=== PATIENT | female | born 1990 | race Caucasian/White ===

== ENCOUNTER 2017-08-13 19:34 | Emergency (ER) | payer OTHER ==
[2017-08-13 19:34] VITALS: BMI 33.2
[2017-08-13 19:45] VITALS: RESP 16
[2017-08-13] MEDS ORDERED: Sodium Chloride 0.9% 1,000 ML IV STA (20:08)
--- NOTE | 2017-08-13 20:10 | ED PDOC ---
HPI: Abdomen Time Seen by Provider: 08/13/17 19:53 Chief Complaint (Nursing): Abdominal Pain Chief Complaint (Provider): Abd pain History Per: Patient Onset/Duration Of Symptoms: Days (3) Additional Complaint(s): Abd pain diffuse likely bubbling. Also with nausea, vomit, diarrhea non bloody for 3 days. No new food or drinks. No travel. Denies cough, congestion, dysuria, weakness, dizziness, chest pain, fever. Past Medical History Reviewed: Historical Data, Nursing Documentation, Vital Signs Vital Signs: Last Vital Signs Temp 98.3 F 08/13/17 19:43 Pulse 94 H 08/13/17 19:43 Resp 16 08/13/17 19:43 BP 119/68 08/13/17 19:43 Pulse Ox 99 08/13/17 22:51 - Medical History PMH: Gall Bladder Disease - Surgical History Surgical History: Cholecystectomy, - Family History Family History: States: Unknown Family Hx - Living Arrangements Living Arrangements: With Family - Social History Alcohol: None Drugs: Denies - Immunization History Hx Tetanus Toxoid Vaccination: No Hx Influenza Vaccination: No Hx Pneumococcal Vaccination: No - Home Medications Home Medications: Ambulatory Orders Medication Instructions Recorded No Known Home Med 08/13/17 - Allergies Allergies/Adverse Reactions: Allergies Allergy/AdvReac Type Severity Reaction Status Date / Time No Known Allergies Allergy Verified 05/25/16 07:20 Review of Systems ROS Statement: Except As Marked, All Systems Reviewed And Found Negative Gastrointestinal: Positive for: Nausea, Vomiting, Abdominal Pain, Diarrhea Physical Exam - Reviewed Nursing Documentation Reviewed: Yes Vital Signs Reviewed: Yes - Physical Exam Appears: Positive for: Non-toxic, No Acute Distress Head Exam: Positive for: ATRAUMATIC, NORMAL INSPECTION, NORMOCEPHALIC Skin: Positive for: Normal Color, Warm, DRY Cardiovascular/Chest: Positive for: Regular Rate, Rhythm Respiratory: Positive for: CNT, Normal Breath Sounds Gastrointestinal/Abdominal: Positive for: Bowel Sounds, Soft, Tenderness (mild diffuse). Negative for: Distended, Guarding Back: Positive for: Normal Inspection. Negative for: L CVA Tenderness, R CVA Tenderness Extremity: Positive for: Normal ROM. Negative for: Tenderness, Pedal Edema Neurologic/Psych: Positive for: Alert, Oriented - Laboratory Results Result Diagrams: 08/13/17 20:18 08/13/17 20:18 Interpretation Of Abn Labs: 17.2 wbc - ECG O2 Sat by Pulse Oximetry: 99 Pulse Ox Interpretation: Normal - Progress ED Course And Treament: 1000: Stable. AAOx3. Still in pain and tender on exam. Will Ct considering wbc elevation. 1116: Stable. AAOx3. S/O to Dr. Ortega. Pending CT. Disposition - Clinical Impression Clinical Impression: Abdominal pain - Patient ED Disposition Is Patient to be Admitted: Transfer of Care - Disposition Disposition: Transfer of Care Disposition Time: 23:17 Condition: STABLE
[2017-08-13 20:23] LABS: BASO # 0.1 K/uL (0.0-0.2); BASO % 0.5 % (0.0-2.0); EOS # 0.4 K/uL (0.0-0.7); EOS % 2.6 % (0.0-4.0); HEMATOCRIT 39.9 % (34.0-47.0); LYMPH # 3.2 K/uL (1.0-4.3); LYMPH % 18.7 % (20.0-40.0); MEAN CELL VOLUME 79.4 fl (81.0-99.0); MEAN CORPUSCULAR HEMOGLOBIN 26.5 pg (27.0-31.0); MEAN CORPUSCULAR HGB CONC 33.4 g/dL (33.0-37.0); MEAN PLATELET VOLUME 9.1 fl (7.2-11.7); MONO # 1.3 K/uL (0.0-0.8); MONO % 7.3 % (0.0-10.0); NEUT # 12.2 K/uL (1.8-7.0); NEUT % 70.9 % (50.0-75.0); NRBC % 0.8 % (0.0-0.0); RED CELL DISTRIBUTION WIDTH 16.2 % (11.5-14.5); WHITE BLOOD COUNT 17.2 K/uL (4.8-10.8)
[2017-08-13 20:33] LABS: ALB/GLOB RATIO 1.4 (1.0-2.1); ALKALINE PHOSPHATASE 82 U/L (38-126); ALT/SGPT 43 U/L (9-52); AST/SGOT 23 U/L (14-36); BILIRUBIN,TOTAL 0.4 mg/dl (0.2-1.3); BLOOD UREA NITROGEN 11 mg/dl (7-17); CALCIUM 9.1 mg/dL (8.4-10.2); CARBON DIOXIDE 27 mmol/L (22-30); CHLORIDE 107 mmol/L (98-107); GFR AFRICAN-AMERICAN > 60; GLUCOSE,RANDOM 89 mg/dL (65-105); LIPASE 101 U/L (23-300); POTASSIUM 3.8 MMOL/L (3.6-5.0); SODIUM 144 mmol/l (132-148); TOTAL PROTEIN 7.1 G/DL (6.3-8.2)
[2017-08-13] MEDS ORDERED: Iohexol 240 (50 ml) PO ONE (22:03)
[2017-08-13] MEDS ORDERED: Iohexol 240 (50 ml) ONE (22:12)
[2017-08-13] MEDS ORDERED: Sodium Chloride 0.9% 50 ML IV ONE (23:19)
[2017-08-13] MEDS ORDERED: Iohexol 300 100 ML IJ ONE (23:19)
--- NOTE | 2017-08-14 01:08 | CT ---
EXAM: CT Abdomen and Pelvis With Intravenous Contrast CLINICAL HISTORY: 27 years old, female; Pain and signs and symptoms; Nausea and vomiting; Abdominal pain; Generalized; Prior surgery; Surgery date: 6+ months; Surgery type: Gb removed. 4 c-sections; Additional info: Abd pain TECHNIQUE: Axial computed tomography images of the abdomen and pelvis with intravenous contrast. All CT scans at this facility use one or more dose reduction techniques, viz.: automated exposure control; ma/kV adjustment per patient size (including targeted exams where dose is matched to indication; i.e. head); or iterative reconstruction technique. 520 images are submitted. Oral contrast was administered. Coronal and sagittal reformatted images were created and reviewed. CONTRAST: 90 mL of [id number] administered intravenously. COMPARISON: No relevant prior studies available. FINDINGS: Lower thorax: No acute findings. ABDOMEN: Liver: Unremarkable. No mass. Gallbladder and bile ducts: Cholecystectomy. Pancreas: Unremarkable. No mass. No ductal dilation. Spleen: Unremarkable. No splenomegaly. Adrenals: Unremarkable. No mass. Kidneys and ureters: Unremarkable. No solid mass. No hydronephrosis. Stomach and bowel: Unremarkable. No obstruction. No mucosal thickening. Appendix: Normal appendix. PELVIS: Bladder: Partially distended bladder. Reproductive: High riding ovaries with follicles. Anteriorly displaced heterogeneous uterus. ABDOMEN and PELVIS: Intraperitoneal space: Unremarkable. No free air. No significant fluid collection. Bones/joints: No acute fracture. No dislocation. Soft tissues: Unremarkable. Vasculature: Unremarkable. No abdominal aortic aneurysm. Lymph nodes: Bilateral groin lymph nodes. IMPRESSION: No acute findings.
--- NOTE | 2017-08-14 01:28 | ED PDOC ---
"- Laboratory Results Result Diagrams: 08/13/17 20:18 08/13/17 20:18 - ECG O2 Sat by Pulse Oximetry: 99 (RA) Pulse Ox Interpretation: Normal Medical Decision Making Medical Decision Makin:00. Patient signed out by Dr. Gatica. Pending CT report. EXAM: CT Abdomen and Pelvis With Intravenous Contrast CLINICAL HISTORY: 27 years old, female; Pain and signs and symptoms; Nausea and vomiting; Abdominal pain; Generalized; Prior surgery; Surgery date: 6+ months; Surgery type: Gb removed. 4 c-sections; Additional info: Abd pain TECHNIQUE: Axial computed tomography images of the abdomen and pelvis with intravenous contrast. All CT scans at this facility use one or more dose reduction techniques, viz.: automated exposure control; ma/kV adjustment per patient size (including targeted exams where dose is matched to indication; i.e. head); or iterative reconstruction technique. 520 images are submitted. Oral contrast was administered. Coronal and sagittal reformatted images were created and reviewed. CONTRAST: 90 mL of [id number] administered intravenously. COMPARISON: No relevant prior studies available. FINDINGS: Lower thorax: No acute findings. ABDOMEN: Liver: Unremarkable. No mass. Gallbladder and bile ducts: Cholecystectomy. Pancreas: Unremarkable. No mass. No ductal dilation. Spleen: Unremarkable. No splenomegaly. Adrenals: Unremarkable. No mass. Kidneys and ureters: Unremarkable. No solid mass. No hydronephrosis. Stomach and bowel: Unremarkable. No obstruction. No mucosal thickening. Appendix: Normal appendix. PELVIS: Bladder: Partially distended bladder. Reproductive: High riding ovaries with follicles. Anteriorly displaced heterogeneous uterus. ROMANA JARRETT | Final Radiology Report CONFIDENTIALITY STATEMENT This report is intended only for use by the referring physician, and only in accordance with law. If you received this in error, call [phone]. Page 2 of 2 ABDOMEN and PELVIS: Intraperitoneal space: Unremarkable. No free air. No significant fluid collection. Bones/joints: No acute fracture. No dislocation. Soft tissues: Unremarkable. Vasculature: Unremarkable. No abdominal aortic aneurysm. Lymph nodes: Bilateral groin lymph nodes. IMPRESSION: No acute findings. 01:26. Patient is in no acute distress at this time. Patient was instructed to follow up with PMD for further evaluation and to return if symptoms worsens. Disposition Counseled Patient/Family Regarding: Studies Performed, Diagnosis, Need For Followup - Clinical Impression Clinical Impression: Abdominal pain - POA Present On Arrival: None - Disposition Referrals: [facility] [Outside] [facility] [Outside] Charly Blanton MD [Staff Provider] - Disposition: Routine/Home Disposition Time: 01:00 Condition: IMPROVED Additional Instructions: follow up with your primary doctor in 1-2 days/GI doctor as well return to the ED with any worsening or concerning symptoms Instructions: Abdominal Pain (ED) Forms: [employer] (Indonesian)"
[2017-08-14 01:32] VITALS: BP 123/86; PULSE 82; TEMP 97.9
[2017-08-14 06:06] VITALS: O2SAT 99
== END 2017-08-14 01:34 | disposition home or self-care (01) ==
LOC: H.ER 19:34
DX: R10.9 Unspecified abdominal pain (principal); K82.9 Disease of gallbladder, unspecified
CPT/HCPCS: 74177; 80053; 81025; 83690; 85025; 96361; 96374; 96375; 99283; J1885; J2405; J7040; Q9966; Q9967

== ENCOUNTER 2018-02-21 08:11 | Emergency (ER) | payer OTHER ==
[2018-02-21 08:18] VITALS: BMI 32.4
[2018-02-21 08:20] VITALS: BP 110/76; PULSE 86; RESP 18; TEMP 98.7; O2SAT 99
--- NOTE | 2018-02-21 08:37 | ED PDOC ---
HPI: Eye Injury/Pain Time Seen by Provider: 02/21/18 08:16 Chief Complaint (Provider): Facial pain History Per: Patient History/Exam Limitations: no limitations Onset/Duration Of Symptoms: Days (x2 weeks) Current Symptoms Are (Timing): Still Present Quality: "Pain" Additional Complaint(s): Ferdinand Newberry is a 28 year old female, with no significant past medical history, who presents to the emergency department for left sided post auricular pain onset for x2 weeks. Patient reports pain radiates to left side of face. Patient noticed difficulty opening eye yesterday and pain worsened by opening and closing mouth. She denies any trauma or dizziness. No further medical complaints. PMD: None provided. Past Medical History Reviewed: Historical Data, Nursing Documentation, Vital Signs Vital Signs: Last Vital Signs Temp 98.7 F 02/21/18 08:19 Pulse 86 02/21/18 08:19 Resp 18 02/21/18 08:19 BP 110/76 02/21/18 08:19 Pulse Ox 99 02/21/18 08:19 - Medical History PMH: No Chronic Diseases, Gall Bladder Disease - Surgical History Surgical History: Cholecystectomy (2010), - Family History Family History: States: Unknown Family Hx - Immunization History Hx Tetanus Toxoid Vaccination: No Hx Influenza Vaccination: No Hx Pneumococcal Vaccination: No - Home Medications Home Medications: Ambulatory Orders Medication Instructions Recorded Bismuth Subsalicylate [Pepto 2 tab PO Q1 PRN #16 ctb 11/06/17 Bismol] Dicyclomine [Bentyl] 20 mg PO QID PRN #20 tab 11/06/17 Famotidine [Pepcid] 20 mg PO BID #30 tab 11/06/17 Naproxen [Naprosyn] 500 mg PO Q12H #20 tab 02/21/18 - Allergies Allergies/Adverse Reactions: Allergies Allergy/AdvReac Type Severity Reaction Status Date / Time No Known Allergies Allergy Verified 11/08/17 01:30 Review of Systems ROS Statement: Except As Marked, All Systems Reviewed And Found Negative Eyes: Positive for: Other (difficulty opening eyes) ENT: Positive for: Other (left post auricular pain. Left sided facial pain) Physical Exam - Reviewed Nursing Documentation Reviewed: Yes Vital Signs Reviewed: Yes - Physical Exam Appears: Positive for: Non-toxic, No Acute Distress Head Exam: Positive for: ATRAUMATIC (No tenderness over mastoids. Tenderness to left TMJ area), NORMOCEPHALIC Skin: Positive for: Normal Color, Warm, Dry. Negative for: Rash (facial) Eye Exam: Positive for: Normal appearance, EOMI, PERRL Neck: Positive for: Painless ROM, Supple (non-tender) Respiratory: Negative for: Respiratory Distress Extremity: Positive for: Normal ROM (on all extremities). Negative for: Deformity, Swelling Neurologic/Psych: Positive for: Alert, Oriented (x3). Negative for: Motor/ Sensory Deficits (no focal deficits) - ECG O2 Sat by Pulse Oximetry: 99 (RA) Pulse Ox Interpretation: Normal Medical Decision Making Medical Decision Making: Initial Plan: --Head w/o contrast [CT] --Reevaluation Scribe Attestation: Documented by Chaparro Rose, acting as a scribe for Woody Nguyen MD Provider Scribe Attestation: All medical record entries made by the Scribe were at my direction and personally dictated by me. I have reviewed the chart and agree that the record accurately reflects my personal performance of the history, physical exam, medical decision making, and the department course for this patient. I have also personally directed, reviewed, and agree with the discharge instructions and disposition. Disposition - Clinical Impression Clinical Impression: Headache, Trigeminal neuralgia - Patient ED Disposition Is Patient to be Admitted: No Counseled Patient/Family Regarding: Studies Performed, Diagnosis, Need For Followup, Rx Given - Disposition Referrals: Maria Elena Flores MD [Medical Doctor] - Disposition: Routine/Home Disposition Time: 11:04 Condition: FAIR Prescriptions: Naproxen [Naprosyn] 500 mg PO Q12H #20 tab Instructions: Trigeminal Neuralgia, Headache, Adult
--- NOTE | 2018-02-21 10:12 | CT ---
PROCEDURE: CT HEAD WITHOUT CONTRAST. HISTORY: Left sided headache COMPARISON: None available. TECHNIQUE: Axial computed tomography images were obtained through the head/brain without intravenous contrast. Radiation dose: Total exam DLP = 812.73 mGy-cm. This CT exam was performed using one or more of the following dose reduction techniques: Automated exposure control, adjustment of the mA and/or kV according to patient size, and/or use of iterative reconstruction technique. FINDINGS: HEMORRHAGE: No intracranial hemorrhage. BRAIN: No mass effect or edema. No atrophy or chronic microvascular ischemic changes. VENTRICLES: Unremarkable. No hydrocephalus. CALVARIUM: Unremarkable. PARANASAL SINUSES: Unremarkable as visualized. No significant inflammatory changes. MASTOID AIR CELLS: Unremarkable as visualized. No inflammatory changes. OTHER FINDINGS: None. IMPRESSION: Normal CT of the Head. No intracranial mass, hemorrhage or evidence of acute infarct.
[2018-02-21] MEDS ORDERED: Naproxen 500 MG TAB PO STA (10:53)
[2018-02-21] MEDS ORDERED: Naproxen 500 MG TAB PO ONE (11:00)
== END 2018-02-21 11:29 | disposition home or self-care (01) ==
LOC: H.ER 08:11
DX: R51 Headache (principal); G50.0 Trigeminal neuralgia

== ENCOUNTER 2018-05-15 14:05 | Emergency (ER) | payer OTHER ==
[2018-05-15 14:06] VITALS: BMI 32.4
--- NOTE | 2018-05-15 14:44 | ED PDOC ---
HPI: Abdomen Time Seen by Provider: 05/15/18 14:27 Chief Complaint (Nursing): Abdominal Pain Onset/Duration Of Symptoms: Days (3) Current Symptoms Are (Timing): Still Present Context: Food Severity: Mild Location Of Pain/Discomfort: RUQ, Epigastric Quality Of Discomfort: Unable To Describe Associated Symptoms: denies: Nausea, Vomiting, Diarrhea Exacerbating Factors: None Alleviating Factors: None Additional Complaint(s): C/o itchy rash on arms and legs x 2 days. Also c/o easy bruising. Also c/o epigastric and RUQ abd pain. Denies NVD. No fever. Past Medical History Vital Signs: Last Vital Signs Temp 98.2 F 05/15/18 14:20 Pulse 86 05/15/18 14:20 Resp 19 05/15/18 14:20 BP 111/66 05/15/18 14:20 Pulse Ox 98 05/15/18 14:44 - Medical History PMH: Gall Bladder Disease, Sickle Cell Disease - Surgical History Surgical History: Cholecystectomy (2010), - Family History Family History: States: Unknown Family Hx - Immunization History Hx Tetanus Toxoid Vaccination: No Hx Influenza Vaccination: No Hx Pneumococcal Vaccination: No - Home Medications Home Medications: Ambulatory Orders Medication Instructions Recorded Bismuth Subsalicylate [Pepto 2 tab PO Q1 PRN #16 ctb 11/06/17 Bismol] Dicyclomine [Bentyl] 20 mg PO QID PRN #20 tab 11/06/17 Famotidine [Pepcid] 20 mg PO BID #30 tab 11/06/17 Naproxen [Naprosyn] 500 mg PO Q12H #20 tab 02/21/18 Famotidine [Pepcid] 20 mg PO Q12 #20 tab 05/15/18 - Allergies Allergies/Adverse Reactions: Allergies Allergy/AdvReac Type Severity Reaction Status Date / Time No Known Allergies Allergy Verified 11/08/17 01:30 Review of Systems ROS Statement: Except As Marked, All Systems Reviewed And Found Negative Gastrointestinal: Positive for: Abdominal Pain Skin: Positive for: Rash Physical Exam - Reviewed Nursing Documentation Reviewed: Yes Vital Signs Reviewed: Yes - Physical Exam Appears: Positive for: Non-toxic, No Acute Distress Head Exam: Positive for: ATRAUMATIC, NORMAL INSPECTION, NORMOCEPHALIC Skin: Positive for: Normal Color, Warm, Rash (?petechial rash right arm, ecchymosis pretibial area left side) Eye Exam: Positive for: EOMI, Normal appearance, PERRL ENT: Positive for: Normal ENT Inspection Neck: Positive for: Normal, Painless ROM Cardiovascular/Chest: Positive for: Regular Rate, Rhythm Respiratory: Positive for: CNT, Normal Breath Sounds Gastrointestinal/Abdominal: Positive for: Normal Exam, Soft. Negative for: Tenderness Back: Positive for: Normal Inspection Extremity: Positive for: Normal ROM Neurologic/Psych: Positive for: Alert, Oriented - Laboratory Results Result Diagrams: 05/15/18 15:27 05/15/18 15:27 - ECG O2 Sat by Pulse Oximetry: 98 - Progress Re-evaluation Time: 17:51 Condition: Improved Disposition - Clinical Impression Clinical Impression: Gastritis - Patient ED Disposition Is Patient to be Admitted: No Counseled Patient/Family Regarding: Studies Performed, Diagnosis, Need For Followup, Rx Given - Disposition Referrals: [facility] [Outside] Disposition: Routine/Home Disposition Time: 17:52 Condition: FAIR Prescriptions: Famotidine [Pepcid] 20 mg PO Q12 #20 tab Instructions: Gastritis Forms: [employer] (Turkmen)
[2018-05-15 15:43] LABS: BASO # 0.1 K/uL (0.0-0.2); BASO % 0.4 % (0.0-2.0); EOS # 0.1 K/uL (0.0-0.7); EOS % 0.7 % (0.0-4.0); HEMOGLOBIN 13.3 g/dL (12.0-16.0); LYMPH # 2.9 K/uL (1.0-4.3); LYMPH % 21.3 % (20.0-40.0); MEAN CELL VOLUME 83.9 fl (81.0-99.0); MEAN CORPUSCULAR HEMOGLOBIN 29.1 pg (27.0-31.0); MEAN CORPUSCULAR HGB CONC 34.7 g/dL (33.0-37.0); MEAN PLATELET VOLUME 10.8 fl (7.2-11.7); MONO # 1.2 K/uL (0.0-0.8); MONO % 8.6 % (0.0-10.0); NEUT # 9.5 K/uL (1.8-7.0); RBC 4.58 Mil/uL (3.80-5.20); RED CELL DISTRIBUTION WIDTH 14.2 % (11.5-14.5); WHITE BLOOD COUNT 13.7 K/uL (4.8-10.8)
[2018-05-15 15:48] LABS: ALB/GLOB RATIO 1.5 (1.0-2.1); ALBUMIN 4.2 g/dL (3.5-5.0); ALT/SGPT 23 U/L (9-52); AST/SGOT 22 U/L (14-36); BLOOD UREA NITROGEN 12 mg/dl (7-17); GFR AFRICAN-AMERICAN > 60; GFR NON-AFRICAN AMERICAN > 60
[2018-05-15] MEDS ORDERED: Potassium Chloride 20 mEq ER Tab PO ONE ×2 (16:08→16:41)
[2018-05-15 16:16] LABS: INR 1.1 (0.9-1.2); PROTHROMBIN TIME 12.4 Seconds (9.8-13.1)
[2018-05-15 18:29] VITALS: BP 119/67; PULSE 76; RESP 18; TEMP 98; O2SAT 100
== END 2018-05-15 18:28 | disposition home or self-care (01) ==
LOC: H.ER 14:05
DX: K29.70 Gastritis, unspecified, without bleeding (principal)

== ENCOUNTER 2018-10-10 08:55 | Emergency (ER) | payer OTHER ==
[2018-10-10 08:55] VITALS: BMI 32.4
[2018-10-10 09:23] VITALS: BP 96/54; PULSE 85; RESP 18; TEMP 98.9; O2SAT 99
--- NOTE | 2018-10-10 11:48 | ED PDOC ---
HPI:Nausea, Vomiting, Diarrhea Time Seen by Provider: 10/10/18 09:36 Chief Complaint (Nursing): GI Problem Chief Complaint (Provider): GI Problem History Per: Patient History/Exam Limitations: no limitations Onset/Duration Of Symptoms: Days (x 1) Current Symptoms Are (Timing): Still Present Quality Of Discomfort: "Pain" Associated Symptoms: Vomiting, Diarrhea Additional Complaint(s): 28 year old female with a history of gallbladder disease presents to the ED with diarrhea, vomiting and abdominal pain since yesterday. Son has similar symptoms of vomiting and diarrhea for the last 4 days. She has chronic right liver pain when she eats fatty foods- thinks it may be the cause of her abdominal pain. Denies fever and other medical complaints. PMD: Dr. Griggs Past Medical History Reviewed: Historical Data, Nursing Documentation, Vital Signs Vital Signs: Last Vital Signs Temp 98.9 F 10/10/18 09:18 Pulse 85 10/10/18 09:18 Resp 18 10/10/18 09:18 BP 96/54 L 10/10/18 09:18 Pulse Ox 99 10/10/18 09:18 - Medical History PMH: Gall Bladder Disease Denies: Sickle Cell Disease - Surgical History Surgical History: Cholecystectomy (2010), - Family History Family History: States: Unknown Family Hx - Immunization History Hx Tetanus Toxoid Vaccination: No Hx Influenza Vaccination: No Hx Pneumococcal Vaccination: No - Home Medications Home Medications: Ambulatory Orders Medication Instructions Recorded Bismuth Subsalicylate [Pepto 2 tab PO Q1 PRN #16 ctb 11/06/17 Bismol] Dicyclomine [Bentyl] 20 mg PO QID PRN #20 tab 11/06/17 Famotidine [Pepcid] 20 mg PO BID #30 tab 11/06/17 Naproxen [Naprosyn] 500 mg PO Q12H #20 tab 02/21/18 Famotidine [Pepcid] 20 mg PO Q12 #20 tab 05/15/18 Docusate Sodium [Colace] 100 mg PO BID PRN #10 capsule 07/26/18 - Allergies Allergies/Adverse Reactions: Allergies Allergy/AdvReac Type Severity Reaction Status Date / Time No Known Allergies Allergy Verified 10/10/18 09:13 Review of Systems ROS Statement: Except As Marked, All Systems Reviewed And Found Negative Gastrointestinal: Positive for: Vomiting, Abdominal Pain, Diarrhea Physical Exam - Reviewed Nursing Documentation Reviewed: Yes Vital Signs Reviewed: Yes - Physical Exam Appears: Positive for: Non-toxic, No Acute Distress Head Exam: Positive for: ATRAUMATIC, NORMAL INSPECTION, NORMOCEPHALIC Skin: Positive for: Normal Color, Warm, Dry Eye Exam: Positive for: EOMI, Normal appearance, PERRL Neck: Positive for: Normal, Painless ROM, Supple Cardiovascular/Chest: Positive for: Regular Rate, Rhythm Respiratory: Positive for: CNT, Normal Breath Sounds Gastrointestinal/Abdominal: Positive for: Normal Exam, Soft Extremity: Positive for: Normal ROM. Negative for: Deformity Neurologic/Psych: Positive for: Alert, Oriented. Negative for: Motor/Sensory Deficits - ECG O2 Sat by Pulse Oximetry: 99 (RA) Pulse Ox Interpretation: Normal Medical Decision Making Medical Decision Makin:09 Upon provider evaluation patient is medically stable, and requires no further treatment in the ED at this time. Patient will be discharged home. Scribe Attestation: Documented by Joaquina Sauceda acting as a scribe for Berhane Ortega MD Provider Scribe Attestation: All medical record entries made by the Scribe were at my direction and personally dictated by me. I have reviewed the chart and agree that the record accurately reflects my personal performance of the history, physical exam, medical decision making, and the department course for this patient. I have also personally directed, reviewed, and agree with the discharge instructions and disposition. Disposition - Clinical Impression Clinical Impression: Chronic pain - Disposition Condition: IMPROVED Additional Instructions: follow up with your primary doctor in 1-2 days stay hydrated return to the ED with any worsening or concerning symptoms Instructions: Chronic Pain (DC) Forms: [employer] (Pashto)
== END 2018-10-10 12:59 | disposition home or self-care (01) ==
LOC: H.ER 08:55
DX: R10.9 Unspecified abdominal pain (principal); G89.29 Other chronic pain